=== PATIENT | male | born 1975 | race Caucasian/White ===

== ENCOUNTER 2017-12-19 22:03 | Emergency (ER) | payer OTHER ==
[2017-12-19 22:11] VITALS: BMI 24.0
--- NOTE | 2017-12-19 22:18 | DR.EXTPAIN ---
HPI - PCP Primary Care Physician: NFD - Complaint/Symptoms Chief Complaint:: "I WAS POPPING A TOWEL AND MY SHOULDER POPPED OUT. I HAVE BEEN HERE BEFORE FOR THIS." NOTED LEFT SHOULDER DEFORMITY. - Nurses notes reviewed Nurses Notes Review: Yes - Source History Provided: Patient - Mode of arrival Mode of Arrival: Ambulatory - Timing Onset of Chief Complaint: 12/19/17 - Context History of: Shoulder Dislocation - Associated signs and symptoms Associated Signs and Symptoms: Pain PMH - PMH Past Medical History: Yes Past Medical History: Schizophrenia Past Medical History Comment: BIPOLAR Past Surgical History: No - Family History History of Family Medical Conditions: Yes Family Medical History: Diabetes Mellitus, Cancer, Coronary Artery Disease - Social History Alcohol Use: None Do you use any recreational Drugs:: No Lives Where: NURSING HOME - infectious screening Have you traveled outside the country in the last 6 months?: No Isolation: Standard ROS - Review of Systems Constitutional: No Symptoms Reported Eyes: No Symptoms Reported ENTM: No Symptoms Reported Respiratoy: No Symptoms Reported Cardiovascular: No Symptoms Reported Gastrointestinal/Abdominal: No Symptoms Reported Genitourinary: No Symptoms Reported Neurological: No Symptoms Reported Musculoskeletal: Left, Shoulder Integumentary: No Symptoms Reported Hematologic/Lymphatic: No Symptoms Reported Endocrine: No Symptoms Reported All Other Systems: Reviewed and Negative PE - Vital Signs Vitals: Temperature 98.2 F Pulse Rate 73 Respiratory Rate 16 Blood Pressure 172/99 O2 Sat by Pulse Oximetry 98 - General Limitations: No Limitations General Appearance: Alert - Head Head Exam: Normal Inspection - Eyes Eye exam: Normal Appearance - ENT ENT Exam: Normal External Ear Exam - Neck Neck Exam: Normal Inspection - Chest Chest Inspection: Symmetric Chest Wall Rise - Respiratory Respiratory Exam: Normal Lung Sounds Bilat Respiratory Exam: Bilateral Clear to Auscultation - Cardiovascular Cardiovascular Exam: Regular Rate, Normal Rhythm, Normal Heart Sounds - Abdominal Exam Abdominal Exam: Normal Bowel Sounds, Soft. negative: Tenderness - Extremities Extremities Exam: Tenderness - Upper Extremities Shoulder Exam: Tenderness, Swelling, Dislocation - Lower Extremities Neurovascular/Tendon Exam: Normal Capillary Refill Gait Exam: Observed and Normal - Back Back Exam: Normal Inspection - Neurological Neurological Exam: Alert, Oriented X3 - Psychiatric Psychiatric Exam: Normal Affect, Normal Mood - Skin Skin Exam: Normal Color MDM - Differential Diagnosis Differential Diagnosis: Fracture, Sprain, Other (DISLOCATION) Course - Treatment Treatment: SEE ORDERS. - Education/Counseling Education/Counseling: Patient, Education Educated On: Treatment, Diagnosis ROR - XRAY XRAY Interpreted by: Radiologist XRAY Findings: REPORT DISCUSS WITH PATIENT. - Discharge Plan Condition: Stable Prescriptions: Ibuprofen [MOTRIN TAB 800 MG *] 800 mg PO Q8H PRN #20 tab PRN Reason: Pain/Inflammation - Follow ups/Referrals Follow ups/Referrals: MING OCHOA [STAFF PHYSICIAN] - 1 day NFD,None [Primary Care Provider] - 1 day - Instructions Instructions: Shoulder Sprain Additional Instructions: YOU HAVE SHOULDER DISLOCATION THAT IS BEING REDUCE IN THE EMERGENCY ROOM AND PLACE IN A SPLINT. YOU SHOULD FOLLOW UP WITH [facility] DOCTOR AND THE ORTHOPEDIC DOCTOR. RETURN TO ED IF WORSE.
--- NOTE | 2017-12-19 22:34 | RAD ---
SHOULDER RADIOGRAPHS CLINICAL HISTORY: 42-year-old male with left shoulder dislocation. COMPARISON: Left shoulder radiographs 03/15/2016. FINDINGS: 2 views of the left shoulder were obtained. Anterior dislocation with chronic Hill-Sachs de formity and no other acute fracture or malalignment. The AC joint is congruent. There is no aggress hope bone lesion or abnormal periosteal reaction. There is no soft tissue calcification or gas. The left lung apex is clear. IMPRESSION: Anterior left shoulder dislocation with chronic Hill-Sachs deformity. Reported By:
[2017-12-19] MEDS ORDERED: DIPRIVAN VIAL 20 ML ONE (22:56)
--- NOTE | 2017-12-19 23:21 | RAD ---
SHOULDER RADIOGRAPHS CLINICAL HISTORY: 42-year-old male status post reduction. COMPARISON: Left shoulder radiographs this date. FINDINGS: 2 views of the left shoulder were obtained. Successful reduction of anterior left shoulder dislocation. No evidence of acute fracture or malalignment with chronic Hill-Sachs deformity present . Imaged left lung is clear. IMPRESSION: Successful reduction of left shoulder anterior dislocation. Reported By:
[2017-12-19] MEDS ORDERED: TORADOL 30 MG VIAL IVP ONE (23:40)
[2017-12-19] MEDS ORDERED: TORADOL 30 MG VIAL ONE (23:41)
[2017-12-19 23:51] VITALS: BP 128/85
== END 2017-12-19 23:55 | disposition home or self-care (01) ==
LOC: ER 22:27
PROC: 0RSK3ZZ Reposition Left Shoulder Joint, Percutaneous Approach (ICD-10-PCS; principal; 2017-12-19)
DX: S43.402A Unspecified sprain of left shoulder joint, initial encounter (principal); Y33.XXXA Other specified events, undetermined intent, initial encounter; Y92.89 Other specified places as the place of occurrence of the external cause
CPT/HCPCS: 23655; 73030; 93041; 96365; 96374; 96375; 99282; 99283; A4222; J1885; J3490

== ENCOUNTER 2018-01-20 21:03 | Emergency (ER) | payer OTHER ==
[2018-01-20 21:07] VITALS: BP 142/95; BMI 25.1
--- NOTE | 2018-01-20 21:37 | DR.GENAD ---
HPI - PCP Primary Care Physician: nfd - Complaint/Symptoms Chief Complaint Doctors Comments: Left shoulder pain. He states that his shoulder had popped out about 3 hours prior to this E.D. visit. It was back in place just as he arrived here and he states that just prior to my entering the room to see him, it had popped out again when he raised his arm up. The 1st episode of dislocation happened 3 weeks ago, while rough playing [place] the [place]. Chief Complaint:: dislocated shouder left - Nurses notes reviewed Nurses Notes Review: Yes - Source History Provided: Patient - Mode of Arrival Mode of Arrival: Ambulatory - Timing Onset of Chief Complaint: 01/20/18 PMH - PMH Past Medical History: Yes Past Medical History: Schizophrenia Past Surgical History: No - Family History History of Family Medical Conditions: Yes Family Medical History: Diabetes Mellitus, Cancer, Coronary Artery Disease - Social History Does patient currently use any type of tobacco product: No Have you used tobacco products in the last 12 months: No Type of Tobacco Use: None Does any household member use tobacco: No Alcohol Use: None Do you use any recreational Drugs:: No Lives With: Other Lives Where: shelter - infectious screening In the last 2 months have you had wt loss of >10#?: NO Have you had fever, night sweats or hemotysis?: No Have you traveled outside the country in the last 6 months?: No Isolation: Standard ROS - Review of Systems Constitutional: No Symptoms Reported Eyes: No Symptoms Reported ENTM: No Symptoms Reported Respiratoy: No Symptoms Reported Cardiovascular: No Symptoms Reported Gastrointestinal/Abdominal: No Symptoms Reported Genitourinary: No Symptoms Reported Neurological: No Symptoms Reported Musculoskeletal: Left, Shoulder (popped out of place.) Integumentary: No Symptoms Reported Hematologic/Lymphatic: No Symptoms Reported Endocrine: No Symptoms Reported Psychiatric: No Symptoms Reported All Other Systems: Reviewed and Negative PE - Vital Signs Vitals: Temperature 97.6 F Pulse Rate 68 Respiratory Rate 18 Blood Pressure [Right Arm] 128/85 Blood Pressure 142/95 O2 Sat by Pulse Oximetry 99 - General Limitations: No Limitations General Appearance: Alert, In No Apparent Distress - Head Head Exam: Normal Inspection - Eyes Eye exam: Normal Appearance - ENT ENT Exam: Normal Exam, Normal Oropharynx, Normal External Ear Exam, Mucous Membranes Moist, TM's Normal Bilaterally TM/Canal Exam: Bilateral Normal - Neck Neck Exam: Normal Inspection - Chest Chest Inspection: Normal Inspection - Respiratory Respiratory Exam: Normal Lung Sounds Bilat - Cardiovascular Cardiovascular Exam: Regular Rate, Normal Rhythm - Abdominal Exam Abdominal Exam: Normal Inspection, Normal Bowel Sounds, Soft - Extremities Extremities Exam: Normal Inspection, Tenderness (lt. shoulder), Normal Capillary Refill. negative: Full ROM, Edema, Joint Swelling, Calf Tenderness - Back Back Exam: Normal Inspection - Neurologic Neurological Exam: Alert, Oriented X3 - Psychiatric Psychiatric Exam: Normal Affect, Normal Mood - Skin Skin Exam: Warm, Dry, Intact, Normal Color ROR - XRAY XRAY Interpreted by: Radiologist (dislocation of lt. 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 Shortly after administeration of 5 mg Valium via I.V. route, and prior to begining of manual reduction the dislocation spontaneously reduced without use of traction. This was noted on visual physical examination and confirmed by repeat Lt. shoulder x-ray. He was placed in sling and swathe with instructions for ortho f/ u to be arranged by health provider(s) at [facility] where [facility].
--- NOTE | 2018-01-20 21:56 | RAD ---
HISTORY: Pain, dislocation Study: Single-view of the left shoulder Comparison: 12/20/2017 FINDINGS/IMPRESSION: Only a single view was obtained due to patient's condition. The humerus appears inferior and medial t o the glenoid most compatible with an anterior shoulder dislocation. Reported By:
[2018-01-20] MEDS ORDERED: VALIUM INJ IVP ONE (22:31)
--- NOTE | 2018-01-20 22:54 | RAD ---
Left shoulder, one view Indication: Post reduction Comparison: Study from earlier the same day Findings: There has been interval reduction of the humeral head to anatomic alignment on this single provided view. There is cortical irregularity of the humeral head in keeping with Hill-Sachs fracture , which could be chronic, acute, or a combination, given history of previous glenohumeral dislocation s. Impression: See above. Reported By:
[2018-01-20] MEDS ORDERED: ULTRAM PO ONE ×2 (23:03→23:08)
[2018-01-20] MEDS ORDERED: ULTRAM ONE (23:04)
== END 2018-01-20 23:10 | disposition home or self-care (01) ==
LOC: ER 21:03
DX: M24.412 Recurrent dislocation, left shoulder (principal)
CPT/HCPCS: 73030; 96365; 96374; 99282; 99283; A4222; J3360